=== PATIENT | female | born 1975 | race Hispanic/Latino ===

== ENCOUNTER → 2022-12-15 | Day surgery (SDC) | payer MEDICARE ==
[~2022-12-15] MED LIST: ASPIRIN81 MG PO; CARVEDILOL12.5 MG PO; FENTANYL CITRATE/PF 100MCG/2 ML INJ ONE; LANTUS 3ML100 UNITS/; MIDAZOLAM HCL 2 MG/2 ML VIAL ONE; OR PHACO EYE KIT ONE; PREOP PHACO EYE KIT ONE; SIMVASTATIN20 MG PO; SODIUM BICARBO325 MG; SODIUM CHLORIDE 0.9% 500ML 500 ML ONE; VITAMIN D
[2022-12-15 08:39] LABS: BASOPHILS # (AUTO) 0.1 (0.0-0.1); BASOPHILS % 0.9 % (0.0-1.0); EOSINOPHILS # (AUTO) 0.2 (0.0-0.4); EOSINOPHILS % 2.8 % (0.0-6.0); HEMATOCRIT 34.9 % (34.2-44.1); HEMOGLOBIN 10.3 g/dL (12.0-16.0); LYMPHOCYTES # (AUTO) 2.1 (1.0-3.2); LYMPHOCYTES % 36.7 % (18.0-39.1); MEAN CORPUSCULAR HEMOGLOBIN 29.5 pg (28-32); MEAN CORPUSCULAR HGB CONC 29.5 g/dL (31-35); MONOCYTES # (AUTO) 0.5 (0.2-0.8); MONOCYTES % 8.3 % (4.4-11.3); NEUTROPHILS # (AUTO) 2.9 (2.1-6.9); NEUTROPHILS % 50.9 % (38.7-80.0); PLATELET COUNT 176 x10e3/uL (140-360); RED BLOOD COUNT 3.49 x10e6/uL (3.6-5.1); RED CELL DISTRIBUTION WIDTH 14.8 % (11.7-14.4)
[2022-12-15 08:52] LABS: INR 1.23; PROTHROMBIN TIME 15.7 seconds (11.9-14.5)
[2022-12-15 08:53] LABS: PARTIAL THROMBOPLASTIN TIME 27.2 seconds (23.8-35.5)
[2022-12-15 09:00] LABS: CALCIUM 8.8 mg/dL (8.4-10.2); CREATININE, SERUM 4.8 mg/dL (0.57-1.11)
[2022-12-15 10:57] VITALS: BP 129/77
== END | disposition home or self-care (01) ==
LOC: OR 07:16
PROVIDERS: ATTEND Ophthalmology
DX: H25.12 Age-related nuclear cataract, left eye (principal); E11.22 Type 2 diabetes mellitus with diabetic chronic kidney disease; I12.0 Hypertensive chronic kidney disease with stage 5 chronic kidney disease or end stage renal disease; N18.6 End stage renal disease; E78.5 Hyperlipidemia, unspecified; Z88.6 Allergy status to analgesic agent; Z01.810 Encounter for preprocedural cardiovascular examination; Z79.82 Long term (current) use of aspirin; Z79.4 Long term (current) use of insulin; Z79.899 Other long term (current) drug therapy; Z99.2 Dependence on renal dialysis
CPT/HCPCS: 36415; 66984; 80048; 82948; 84702; 85025; 85610; 85730; 93005; J2250; J3010; J7040; V2632